=== PATIENT | male | born 1990 | race Caucasian/White ===

== ENCOUNTER 2018-10-04 10:22 | Day surgery (SDC) | payer BC ==
[2018-10-04] VITALS (12 sets, daily range): BP systolic 107–140; BP diastolic 59–78; PULSE 51–71; RESP 16–20; Ht 170.2 cm; Wt 87.1 kg
[~2018-10-04] VITALS: Ht 170.2 cm; Wt 87.1 kg
[2018-10-04] MEDS ORDERED: AMOX500C2 PO (11:02)
--- NOTE | 2018-10-04 11:50 | PREAC ---
Date/Time of Note Date/Time of Note DATE: 10/04/18 TIME: 11:49 Anesthesia Eval and Record Evaluation Time Pre-Procedure Interview DATE: 10/04/18 TIME: 11:49 Age 28 Sex male NPO: 8 hrs Preoperative diagnosis calculus of kidney Planned procedure URETEROSCOPY AND LASER LITHOTRIPSY Past Medical History Past Medical History: Includes Recreational drugs: Marijuana Surgery & Anesthesia Issues No known issue Meds Anticoagulation: No Beta Jasen within 24 hr: No Reason Beta Jasen not given: Pt. not on B-Jasen Reported Medications Amoxicillin* (Amoxicillin*) 500 Mg Cap, 500 MG PO BID, #20 CAP 10/04/18 Meds reviewed: Yes Allergies Coded Allergies: No Known Allergy (Unverified , 10/04/18) Allergies Reviewed: Yes Labs/Studies Labs Reviewed: Reviewed by anesthesiologist test: N/A Studies: CXR Pre-procedure Exam Airway: Adequate mouth opening Mallampati: Mallampati II Teeth: Abnormal (one loose tooth on top right) Lung: Normal Heart: Normal ASA Physical Status ASA physical status: 2 Emergency: None Planned Anesthetic General/MAC: LMA Pre-operative Attestations Prior to commencing anesthesia and surgery, the patient was re-evaluated, there was verification of: *The patient's identity *The results of appropriate recent lab work and preoperative vital signs *The above evaluation not changing prior to induction *Anesthetic plan, risk benefits, alternative and complications discussed with patient/family; questions answered; patient/family understands, accepts and wishes to proceed. CAMACHO LOBO Oct 04, 2018 11:50
[2018-10-04] MEDS ORDERED: ONDANSETRON 4 MG INJ ONE (12:42)
[2018-10-04] MEDS ORDERED: METOCLOPRAMIDE 10 MG INJ ONE (12:42)
[2018-10-04] MEDS ORDERED: SUCCINYLCHOLINE CHLORIDE 100 MG/5 ML SYG IV ONE (12:42)
[2018-10-04] MEDS ORDERED: DESFLURANE 15 MIN ONE (12:42)
[2018-10-04] MEDS ORDERED: PROPOFOL 20 ML ONE ×2 (12:42→14:49)
[2018-10-04] MEDS ORDERED: MIDAZOLAM 1 MG/ML 2 ML INJ ONE (12:42)
[2018-10-04] MEDS ORDERED: FENTAnyl 50 MCG/ML VIAL ONE (12:43)
--- NOTE | 2018-10-04 12:52 | HPN ---
Date/Time of Note Date/Time of Note DATE: 10/04/18 TIME: 12:51 Interval H&P Admission Note Pt. seen H&P reviewed: No system changes RONALD FRANCIS MD Oct 04, 2018 12:52
[2018-10-04] MEDS ORDERED: ROCURONIUM 50 MG INJ ONE (13:06)
[2018-10-04] MEDS ORDERED: HYDROmorphONE 2 MG/ML SYG ONE (13:15)
[2018-10-04] MEDS ORDERED: CEFAZOLIN 1 GM INJ ONE (14:49)
[2018-10-04] MEDS ORDERED: HYDROCODONE/APAP (5/325) TAB PO PRN (15:00)
--- NOTE | 2018-10-04 15:05 | OPR ---
Date/Time of Note Date/Time of Note DATE: 10/04/18 TIME: 14:58 Operative Report Procedure Date: Oct 04, 2018 Preoperative Diagnosis Right upper ureteral stone Postoperative Diagnosis Same Operation/Procedure Performed Cystoscopy, right ureteroscopy, laser lithotripsy, removal and replacement of right ureteral JJ stent Surgeon see signature line Saw Maker nuclear medical technologist Anesthesia Type: general Anesthesiologist: SHARIF STEVENS MD Estimated Blood Loss: minimal Transfusion none Specimen Urine from bladder for culture and sensitivity, right ureteral stone fragments for stone analysis Grafts/Implants none Tubes/Drains Right ureteral JJ stent 6 Citizen [place] by 24 cm long Complications none Pt Condition Post Procedure: stable Disposition: PACU Indications Right upper ureteral stone with obstruction Procedure Description Shunt was brought to the operating room and given general anesthesia then he was positioned in the lithotomy position. He was given 2 g of Ancef IV at the start of the procedure. Timeout was done and the patient was identified by his name, birthdate, the procedure and the side of the procedure. The genital area was then prepped and draped in the usual sterile manner. #21 [place] cystoscope sheath was then introduced under direct vision through the penile urethra all the way to the bladder. The distal end of the old JJ stent was then grasped with a grasper and pulled out. Then the right ureteral orifice was cannulated with a 5 [place] open ended ureteral catheter and a 0.035 zip wire was advanced through it all the way up to the kidney. The cystoscope was then removed leaving the zip wire in place then I passed a dual-lumen ureteral catheter on the zip wire and inserted a 0.035 sensor wire through the second channel. The dual-lumen was then removed and the sensor wire was used as a safety wire and the zip wire was used to advance on it the 11 x 13 mm diameter and 36 cm long access sheath. Then the digital flexible ureteroscope was passed through the access sheath all the way up to the stone. The stone was visualized and using the holmium laser with a 272 m laser fiber the stone was broken into multiple pieces and these pieces were basketed out. On a couple of occasions I had to use the laser again to break the larger pieces into smaller ones so they could be basketed. At the end of the procedure all the stone fragments in the ureter were removed and the ureter was free of stone fragments. The access sheath was removed and the cystoscope was reintroduced on the sensor wire and a 6 [place] by 24 cm long JJ stent was advanced and had its proximal end curling into the kidney and the distal end curling into the bladder. The distal end is attached to a string that was taped to his penis with 2 pieces of Tegaderm. The patient tolerated the procedure well and was transferred to the recovery room in a stable and satisfactory condition. RONALD FRANCIS MD Oct 04, 2018 15:05
[2018-10-04] MEDS ORDERED: FENTAnyl 50 MCG/ML VIAL IV PRN ×3 (15:30)
[2018-10-04] MEDS ORDERED: OXYCODONE/ACETAMINOPHEN (5/325) TAB PO PRN ×2 (15:30)
[2018-10-04] MEDS ORDERED: HYDROmorphONE 1 MG/5 ML IV SYRINGE IV PRN ×3 (15:30)
[2018-10-04] MEDS ORDERED: MEPERIDINE 25 MG INJ IV PRN (15:30)
[2018-10-04] MEDS ORDERED: DIPHENHYDRAMINE 50 MG INJ IV PRN (15:30)
[2018-10-04] MEDS ORDERED: ONDANSETRON 4 MG INJ IV PRN (15:30)
--- NOTE | 2018-10-05 07:34 | PAC ---
Date/Time of Note Date/Time of Note DATE: 10/05/18 TIME: 07:34 Post-Anesthesia Notes Post-Anesthesia Note Last documented vital signs Vital Signs Date Temp Pulse Resp B/P (MAP) Pulse Ox O2 O2 Flow FiO2 Time Delivery Rate 10/04/18 98.0 71 18 114/69 97 Room Air 16:47 (84) Activity: WNL Respiratory function: WNL Cardiovascular function: WNL Mental status: Baseline Pain reasonably controlled: Yes Hydration appropriate: Yes Nausea/Vomiting absent: No SHARIF STEVENS MD Oct 05, 2018 07:34
== END 2018-10-04 17:33 | disposition home or self-care (01) ==
LOC: SDS 10:22
PROVIDERS: ATTEND Urology
DX: N20.1 Calculus of ureter (principal); F12.90 Cannabis use, unspecified, uncomplicated
CPT/HCPCS: 52356; 74430; 87086; J0690; J1170; J2250; J2405; J2765; J3010; Z7610; 88300; C2617